=== PATIENT | male | born 1955 | race Caucasian/White ===

== ENCOUNTER 2022-05-24 14:18 | Emergency (ER) | payer MEDICARE, SELFPAY ==
[2022-05-24 14:29] VITALS: BP 138/70; PULSE 68; RESP 20; TEMP 37.2; O2SAT 97
--- NOTE | 2022-05-24 15:19 | ED.GENADULT ---
HPI - General Adult General Chief complaint: Upper Respiratory Infection Stated complaint: Sore Throat Time Seen by Provider: 05/24/22 15:15 Source: patient, family, RN notes reviewed and old records reviewed Mode of arrival: ambulatory Limitations: no limitations History of Present Illness HPI narrative: 67-year-old male who presents to [facility] accompanied by with complaints of sore throat for 3 day duration. Patient reports that they had been in [place] caring for sick grand kids with positive exposure to ill contacts. Patient reports that he has noted white patches on tonsils and the top of his throat is blistery red and it is painful to swallow. He reports no known fevers, no nausea or vomiting, admits to some body aches. He states that he has not taken any OTC medications for his symptoms. Patient has had COVID vaccinations and flu shot. MD complaint: sore throat Onset (ago): day(s) (3) Severity scale (1-10): 2 Exacerbating factors: eating Treatments prior to arrival: none Related Data Home Medications Medication Instructions Recorded Confirmed chlorthalidone 25 mg tablet 25 mg PO DAILY 05/24/22 05/24/22 clonidine HCl 0.1 mg tablet 0.1 mg PO QHS 05/24/22 05/24/22 lisinopril 40 mg tablet 40 mg PO DAILY 05/24/22 05/24/22 metformin 500 mg tablet 500 mg PO DAILY 05/24/22 05/24/22 metoprolol succinate 50 mg 50 mg PO DAILY 05/24/22 05/24/22 tablet,extended release 24 hr modafinil 100 mg tablet 100 mg PO DAILY 05/24/22 05/24/22 rosuvastatin 40 mg tablet 40 mg PO DAILY 05/24/22 05/24/22 trazodone 50 mg tablet 50 mg PO HS 05/24/22 05/24/22 Allergies Allergy/AdvReac Type Severity Reaction Status Date / Time No Known Allergies Allergy Verified 05/24/22 14:50 Review of Systems Review of Systems: CONSTITUTIONAL: Denies malaise, chills, sweats, or fever. EYES: Denies visual changes, redness, or discharge. ENT: Reports no rhinorrhea, congestion, sinus pain,no otalgia positive sore throat. CARDIOVASCULAR: Denies chest pain, palpitations, or edema. RESPIRATORY: Reports no cough.? Denies dyspnea. GASTROINTESTINAL: Denies abdominal pain, nausea, vomiting, diarrhea SKIN: Denies rash or itching. MUSCULOSKELETAL: Reports myalgia. NEUROLOGIC: Denies headache. All systems reviewed & are unremarkable except as noted in HPI and below PMFSH Past Medical History Medical History (Updated 05/26/22 @ 12:19 by Kaye Reyes NP) Diabetes Elevated cholesterol Hypertension Insomnia Prostate cancer Sleep apnea treated with continuous positive airway pressure (CPAP) Surgical History Surgical History (Updated 05/26/22 @ 12:12 by Kaye Reyes NP) H/O prostatectomy History of carpal tunnel release of both wrists S/P left rotator cuff repair Total knee replacement status bilateral Social History Social History (Updated 05/26/22 @ 12:08 by Kaye Reyes NP) Smoking status: Never smoker Alcohol intake: unknown Substance use type: does not use Living arrangements: with family Occupation/Education: retired Gender identity (if verbalized by the patient): Male Comments At time of signature, agree with nursing past medical, surgical, social and family history. There is no relevant family history pertinent to the presenting complaint Exam Narrative: GENERAL: Well-appearing, well-nourished, and in no acute distress. HEAD: Normocephalic EYES: PERRLA, conjunctivae clear ENT: Nares clear, turbinates edematous and erythematous, clear discharge. Mucous membranes moist. TM pearly [place] with dull light reflex bilaterally; no tragal tenderness. Oropharynx erythematous without lesions. Tonsils enlarged and with white exudate,throat red, no drooling, no hoarseness, no trismus, uvula midline. NECK: Supple. No lymphadenopathy CHEST: Clear to auscultation, breath sounds equal. No wheezing, rhonchi, rales, or stridor. No respiratory distress, speaks in full sentences.no cough, SAO2 97% on quiana
== END 2022-05-24 15:35 | disposition home or self-care (01) ==
PROVIDERS: Emergency Provider Registered Nurse; PCP Internal Medicine
DX: J02.9 Acute pharyngitis, unspecified (principal); E11.9 Type 2 diabetes mellitus without complications; I10 Essential (primary) hypertension; Z85.46 Personal history of malignant neoplasm of prostate; Z79.84 Long term (current) use of oral hypoglycemic drugs
CPT/HCPCS: 87081; 87880; 99213; G0463